=== PATIENT | male | born 1975 | race Caucasian/White ===

== ENCOUNTER 2019-03-17 17:21 | Emergency (ER) | payer OTHER ==
[~2019-03-17] VITALS: Ht 175.3 cm; Wt 88.9 kg
[2019-03-17 17:29] VITALS: Ht 175.3 cm; Wt 88.9 kg
[2019-03-17 18:14] LABS: CALCIUM 9.1 mg/dL (8.5-10.1); CARBON DIOXIDE 24.3 mmol/L (21-32); CHLORIDE SERUM 106 mmol/L (98-107); CREATININE SERUM 1.1 mg/dL (0.7-1.3); GFR1 > 60 mL/min; GLUCOSE SERUM 99 mg/dL (74-106); POTASSIUM SERUM 3.1 mmol/L (3.5-5.1); SODIUM SERUM 141 mmol/L (136-145)
[2019-03-17 18:16] LABS: BASOPHIL % 0.6 % (0-2); PLATELET COUNT 245 x10^3mcL (130-400); RED CELL DISTRIBUTION WIDTH 14.1 % (11.5-14.5)
[2019-03-17 18:18] LABS: ALBUMIN 3.6 g/dL (3.4-5.0); ALKALINE PHOSPHATASE 92 U/L (46-116); ALT/SGPT 55 U/L (16-63); AST/SGOT 28 U/L (15-37); BILIRUBIN TOTAL 0.37 mg/dL (0.20-1.00); TOTAL PROTEIN, SERUM 6.7 g/dL (6.4-8.2)
[2019-03-17 21:50] VITALS: BP 118/79
== END 2019-03-17 21:51 | disposition short-term general hospital (02) ==
LOC: ED 17:21
PROVIDERS: Emergency Medicine
DX: G40.909 Epilepsy, unspecified, not intractable, without status epilepticus (principal); F41.9 Anxiety disorder, unspecified; F32.9 Major depressive disorder, single episode, unspecified; E78.00 Pure hypercholesterolemia, unspecified; Z86.19 Personal history of other infectious and parasitic diseases
CPT/HCPCS: 36415